=== PATIENT | male | born 1990 | race Caucasian/White ===

== ENCOUNTER 2016-12-11 22:03 | Emergency (ER) | payer MEDICARE, MEDICAID ==
[2016-12-11 22:10] VITALS: BP 134/78
[2016-12-11] MEDS ORDERED: IBUPROFEN 600 MG TABLET PO ONE (22:40)
[2016-12-11] MEDS ORDERED: ACETAMINOPHEN 325 MG TABLET PO ONE (22:40)
--- NOTE | 2016-12-11 22:45 | ER Document Report ---
ED General - General Chief Complaint: Shoulder Pain Stated Complaint: SHOULDER PAIN Time Seen by Provider: 12/11/16 22:30 Notes: Patient is a 18-year-old male presents with complaint of left shoulder pain. Patient says he has had left shoulder pain for several years. He says every now and then it flares up and is painful. Tonight it started become painful and therefore came to the ER. He says the pain is mostly over the superior, anterior, and posterior aspects of the shoulder. Pain does not radiate down the hand. No numbness or weakness into the hand. He has not seen a doctor about his chronic shoulder pain. Patient also complains of some small bumps on the shaft of his penis. He says he did have genital warts in the past and wonders if this could potentially be genital warts. He says he has not been sexually active for several years. TRAVEL OUTSIDE OF THE [place] IN LAST 30 DAYS: No - Related Data Allergies/Adverse Reactions: olanzapine [From Zyprexa] Allergy (Verified 04/04/13 15:26) ziprasidone HCl [From Geodon] Allergy (Verified 04/04/13 15:26) ziprasidone mesylate [From Geodon] Allergy (Verified 04/04/13 15:26) Past Medical History - Social History Smoking Status: Never Smoker Chew tobacco use (# tins/day): No Frequency of alcohol use: None Drug Abuse: None Family History: Reviewed & Not Pertinent Patient has suicidal ideation: No Patient has homicidal ideation: No Renal/ Medical History: Denies: Hx Peritoneal Dialysis Psychiatric Medical History: Reports: Hx Attention Deficit Hyperactivity Disorder, Hx Bipolar Disorder, Hx Depression Surgical Hx: Negative - Immunizations Hx Diphtheria, Pertussis, Tetanus Vaccination: Yes Review of Systems - Review of Systems Notes: My Normal Review Basic REVIEW OF SYSTEMS: CONSTITUTIONAL : Denies fever, chills, or sweats. Denies recent illness. RESPIRATORY: Denies cough, cold, or chest congestion. Denies shortness of breath, difficulty breathing, or wheezing. GASTROINTESTINAL: Denies abdominal pain. Denies nausea, vomiting, or diarrhea. Denies constipation. Last BM: GENITOURINARY: genital lesions MUSCULOSKELETAL: left shoulder pain. SKIN: Denies rash or skin lesions. NEUROLOGICAL: Denies altered mental status or loss of consciousness. Denies headache. Denies weakness or paralysis or loss of use of either side. Denies problems with gait or speech. Denies sensory or motor loss. ALL OTHER SYSTEMS REVIEWED AND NEGATIVE. Physical Exam - Vital signs Vitals: Temp Pulse Resp BP Pulse Ox 97.6 F 105 H 20 134/78 H 99 12/11/16 22:08 12/11/16 22:08 12/11/16 22:08 12/11/16 22:08 12/11/16 22:08 - Notes Notes: General Appearance: Well nourished, alert, cooperative, no acute distress, mild obvious discomfort. Vitals: reviewed, See vital signs table. Eyes: PERRL, EOMI, Conjuctiva clear Genital: Normal external genitalia. Patient has small bumps over the shaft of the penis consistent with what appears to be just inflamed sweat glands. There is no lesions or bumps over the glans itself. These do not appear consistent with genital warts. No abnormal discharge from penis. Extremities: strength 5/5 in all extremities, good pulses in all extremities, patient does have full range of motion of his left shoulder. He does have some pain with abduction of the shoulder. He has good distal sensation to the hand. Good strength into the hand. Good distal pulses. Some mild pain to palpation over the superior posterior aspect of the shoulder. Some pain to the biceps insertion of the shoulder. Skin: warm, dry, appropriate color, no rash Neuro: speech clear, oriented x 3, normal affect, responds appropriately to questions. Course - Vital Signs Vital signs: Temp Pulse Resp BP Pulse Ox 97.6 F 103 H 20 134/78 H 98 12/11/16 22:10 12/11/16 22:10 12/11/16 22:10 12/11/16 22:10 12/11/16 22:10 - Transfer of Care Notes: 12/11/16 23:54 Patient be referred to orthopedics for his shoulder. Informed him that he needs evaluation and determine whether or not he has physical therapy or potential surgery or MRI. Patient does not have what appears to be genital warts. Informed him to return to the ER or follow up with his doctor if he has increasing size of lesions or if he has further concerns. Patient agrees with plan will be discharged home. Dictation of this chart was performed using voice recognition software; therefore, there may be some unintended grammatical errors. Discharge - Discharge Clinical Impression: Penile lesion Shoulder pain, left Qualifiers: Chronicity: chronic Qualified Code(s): M25.512 - Pain in left shoulder Condition: Good Disposition: HOME, SELF-CARE Additional Instructions: Please follow up with the orthopedist, Dr. Kelly, for reevaluation and further treatment of your shoulder which may involve physical therapy. The lesions on your penis are currently more consistent with that of inflammed sweat glands of your penis. Please return to the ER immediately if they increase in size, become painful, or if you have further concerns. Take over the counter Tylenol and Motrin for your shoulder pain. Referrals: SHILPI KELLY MD [ACTIVE STAFF] - Follow up in 3-5 days
== END 2016-12-11 22:53 | disposition home or self-care (01) ==
LOC: ER 22:03
DX: L98.8 Other specified disorders of the skin and subcutaneous tissue (principal); M25.512 Pain in left shoulder
CPT/HCPCS: 99283; A9270 ×2